=== PATIENT | female | born 1970 | race Hispanic/Latino ===

== ENCOUNTER 2018-10-26 00:11 | Observation (INO) | payer OTHER ==
[~2018-10-26] VITALS: Ht 157.5 cm; Wt 84.4 kg
[2018-10-26] MEDS ORDERED: ASPIRIN 325 MG TABLET ONE (00:51)
[2018-10-26 01:16] LABS: BASOPHILS % (AUTO) 0.2 % (0.0-5.0); EOSINOPHILS % (AUTO) 0.1 % (0.0-8.0); HEMATOCRIT 42.6 % (36-48); LYMPHOCYTES % (AUTO) 32.7 % (21.0-51.0); MEAN CORPUSCULAR HEMOGLOBIN 32.3 pg (27.0-33.0); MEAN CORPUSCULAR HGB CONC 34.4 g/dL (32.0-36.0); MEAN CORPUSCULAR VOLUME 93.9 fL (79-99); MONOCYTES % (AUTO) 8.6 % (3.0-13.0); NEUTROPHILS % (AUTO) 58.4 % (40.0-77.0); NUCLEATED RED BLOOD CELLS 0.1 % (0.0-0.19); PLATELET COUNT (AUTO) 173 K/uL (130-400); RED BLOOD CELL COUNT(AUTO) 4.54 MIL/uL (4.00-5.50); RED CELL DISTRIBUTION WIDTH 13.6 % (11.0-15.5)
[2018-10-26 01:26] LABS: CREATININE 0.7 mg/dL (0.5-1.5); POTASSIUM 3.7 mmol/L (3.5-5.1)
[2018-10-26 01:31] LABS: INR 0.96 (0.85-1.15); PARTIAL THROMBOPLASTIN TIME 26.8 SEC (26.3-35.5); PROTHROMBIN TIME 10.1 SEC (9.6-11.6)
[2018-10-26 01:44] LABS: ALBUMIN 3.7 g/dL (3.5-5.0); BILIRUBIN,TOTAL 0.2 mg/dL (0.2-1.0); TOTAL PROTEIN, SERUM 7.5 g/dL (6.0-8.3)
[2018-10-26 02:22] LABS: AMPHET/METH SCREEN,URINE NEGATIVE (NEGATIVE); BARBITURATE SCREEN, URINE NEGATIVE (NEGATIVE); BENZODIAZEPINES SCREEN,URINE NEGATIVE (NEGATIVE); CANNABINOID SCREEN,URINE NEGATIVE (NEGATIVE); COCAINE SCREEN,URINE NEGATIVE (NEGATIVE); OPIATE SCREEN,URINE NEGATIVE (NEGATIVE); PHENCYCLIDINE SCREEN,URINE NEGATIVE (NEGATIVE)
[2018-10-26] MEDS ORDERED: NITROGLYCERIN 1GM/1 INCH PACKET TD ONE (02:22)
[2018-10-26] MEDS ORDERED: HYDROCODONE/ACETAMINOPHEN 10/325 MG TAB ONE (02:23)
[2018-10-26] MEDS ORDERED: ONDANSETRON HCL 4 MG/2 ML VIAL IV PRN (06:15)
[2018-10-26] MEDS ORDERED: ACETAMINOPHEN 325 MG TAB PO PRN ×3 (06:15→16:00)
[2018-10-26] MEDS ORDERED: HYDRALAZINE HCL 20 MG/ML VIAL IV PRN (06:15)
[2018-10-26] MEDS ORDERED: MORPHINE SULFATE 2 MG/ML 1ML SYG IV PRN (06:15)
[2018-10-26 07:53] LABS: BASOPHILS % (AUTO) 0.3 % (0.0-5.0); EOSINOPHILS % (AUTO) 0.5 % (0.0-8.0); LYMPHOCYTES % (AUTO) 44.2 % (21.0-51.0); MEAN CORPUSCULAR HEMOGLOBIN 32.7 pg (27.0-33.0); MEAN CORPUSCULAR HGB CONC 34.1 g/dL (32.0-36.0); MEAN CORPUSCULAR VOLUME 95.9 fL (79-99); MONOCYTES % (AUTO) 6.8 % (3.0-13.0); NEUTROPHILS % (AUTO) 48.2 % (40.0-77.0); PLATELET COUNT (AUTO) 172 K/uL (130-400); RED BLOOD CELL COUNT(AUTO) 4.48 MIL/uL (4.00-5.50); RED CELL DISTRIBUTION WIDTH 13.5 % (11.0-15.5); WHITE BLOOD COUNT (AUTO) 9.2 K/uL (4.8-10.8)
[2018-10-26 08:15] LABS: CREATININE 0.7 mg/dL (0.5-1.5); POTASSIUM 3.9 mmol/L (3.5-5.1)
[2018-10-26 08:19] LABS: ALBUMIN 3.7 g/dL (3.5-5.0); BILIRUBIN,TOTAL 0.2 mg/dL (0.2-1.0); TOTAL PROTEIN, SERUM 7.5 g/dL (6.0-8.3)
[2018-10-26 08:42] LABS: B-TYPE NATRIURETIC PEPTIDE 13 pg/mL (0-100)
[2018-10-26] MEDS: ENOXAPARIN SODIUM 30 MG/0.3 ML SQ SCH (09:00)
[2018-10-26 10:20] VITALS: BP 132/83
[2018-10-26] MEDS ORDERED: HYOS-27 PO (12:23)
[2018-10-26] MEDS ORDERED: CARV25TA PO (12:23)
[2018-10-26] MEDS ORDERED: CLON0.5T12 PO (12:23)
[2018-10-26] MEDS ORDERED: LIFI1DRO OU (12:23)
[2018-10-26] MEDS ORDERED: ERGO500014 PO (12:23)
[2018-10-26] MEDS ORDERED: AMIT25TA9 PO (12:23)
[2018-10-26] MEDS ORDERED: GABA-531 PO (12:23)
[2018-10-26] MEDS ORDERED: CYCL5TAB PO (12:23)
[2018-10-26] MEDS ORDERED: PROM6.254 PO (12:23)
[2018-10-26 16:00] VITALS: BP 119/71
[2018-10-26] MEDS ORDERED: LORAZEPAM 0.5 MG TABLET PO PRN ×2 (16:00→18:00)
[2018-10-26] MEDS ORDERED: HYDROCODONE/ACETAMINOPHEN 5/325 MG TAB PO PRN (16:00)
[2018-10-26] MEDS ORDERED: MECLIZINE HCL 25 MG TABLET PO PRN (18:00)
[2018-10-26 20:00] VITALS: BP 124/76
[2018-10-26] MEDS ORDERED: CYCLOBENZAPRINE HCL 10 MG TABLET PO SCH (21:00)
[2018-10-26] MEDS ORDERED: CLONAZEPAM 0.5 MG TABLET PO SCH (21:00)
[2018-10-26] MEDS: CARVEDILOL 25 MG TABLET PO SCH (21:04)
[2018-10-27 00:07] VITALS: BP 123/75
[2018-10-27 05:08] VITALS: BP 107/70
[2018-10-27 05:10] LABS: HEMATOCRIT 38.7 % (36-48); MEAN CORPUSCULAR HEMOGLOBIN 32.5 pg (27.0-33.0); MEAN CORPUSCULAR HGB CONC 34.3 g/dL (32.0-36.0); MEAN CORPUSCULAR VOLUME 94.7 fL (79-99); PLATELET COUNT (AUTO) 150 K/uL (130-400); RED BLOOD CELL COUNT(AUTO) 4.09 MIL/uL (4.00-5.50); RED CELL DISTRIBUTION WIDTH 13.6 % (11.0-15.5); WHITE BLOOD COUNT (AUTO) 6.1 K/uL (4.8-10.8)
[2018-10-27 05:16] LABS: CREATININE 0.7 mg/dL (0.5-1.5); POTASSIUM 3.4 mmol/L (3.5-5.1)
[2018-10-27 08:00] VITALS: BP 108/65
[2018-10-27] MEDS ORDERED: AMITRIPTYLINE HCL 25 MG TABLET PO SCH (09:00)
[2018-10-27] MEDS: ENOXAPARIN SODIUM 30 MG/0.3 ML SQ SCH (09:00)
[2018-10-27] MEDS: CARVEDILOL 25 MG TABLET PO SCH (09:00)
[2018-10-27] MEDS ORDERED: GABAPENTIN 300 MG CAPSULE PO SCH (09:00)
[2018-10-27 12:00] VITALS: BP 117/74
[2018-10-27] MEDS ORDERED: POTASSIUM CHLORIDE 20 MEQ ERTAB PO SCH (15:15)
--- NOTE | 2018-10-27 15:51 | NUR ---
INITIAL MET W PT ALONE, AAOX3, LIVES W SPOUSE, CURRENTLY ON SHORT TERM DISABLITY, WALKING W WALKER, HAS W/CHAIR NO PROVIDER, DISABLED DUE TO RA, DCP IS HOME, HERE FOR CHEST PAIN AND ANXIETY Addendum: 10/27/18 at 1554 by QUENTIN YU RN CM Amended: Links added.
== END 2018-10-27 15:50 | disposition home or self-care (01) ==
LOC: EDH 00:11 → EDHIP 06:13 → 4CH 10:15
PROVIDERS: ADMIT Hospitalist; ATTEND Hospitalist
DX: R07.89 Other chest pain (principal); E87.6 Hypokalemia; E11.65 Type 2 diabetes mellitus with hyperglycemia; E66.9 Obesity, unspecified; E78.5 Hyperlipidemia, unspecified; H40.9 Unspecified glaucoma; I10 Essential (primary) hypertension; K21.9 Gastro-esophageal reflux disease without esophagitis; I34.1 Nonrheumatic mitral (valve) prolapse; I63.9 Cerebral infarction, unspecified; J44.9 Chronic obstructive pulmonary disease, unspecified; G30.9 Alzheimer's disease, unspecified; F02.80 Dementia in other diseases classified elsewhere, unspecified severity, without behavioral disturbance, psychotic disturbance, mood disturbance, and anxiety; F41.9 Anxiety disorder, unspecified; Z82.49 Family history of ischemic heart disease and other diseases of the circulatory system; Z79.899 Other long term (current) drug therapy
CPT/HCPCS: 36415 ×2; 71045; 80048; 80053 ×2; 80305; 82550; 83874; 83880; 84484 ×4; 85025 ×2; 85027; 85378; 85610; 85730; 93005 ×2; 93306; 93880; 99284; G0378 ×34

== ENCOUNTER → 2018-12-30 | Outpatient (CLI) | payer OTHER ==
[~2018-12-30] VITALS: Ht 165.1 cm; Wt 87.1 kg
[~2018-12-30] MED LIST: AMIT25TA9 PO; CARV25TA PO; CLON0.5T12 PO; CYCL5TAB PO; ERGO500014 PO; GABA-531 PO; HYOS-27 PO; LIFI1DRO OU; PROM6.254 PO; REGADENOSON 0.4 MG/5 ML PF SYG IVP SCH
== END | disposition home or self-care (01) ==
LOC: SHCH 08:57
PROVIDERS: ATTEND Internal Medicine Cardiovascular Disease
DX: R07.89 Other chest pain (principal)
CPT/HCPCS: 78452; 93017; 96374; A9500 ×2; J2785

== ENCOUNTER → 2020-02-22 | Outpatient (CLI) | payer MEDICARE ==
[~2020-02-22] MED LIST changes: -CLON0.5T12 PO; +CLON0.5T4 PO; -REGADENOSON 0.4 MG/5 ML PF SYG IVP SCH
== END | disposition home or self-care (01) ==
LOC: SHCH 12:38
PROVIDERS: ATTEND Internal Medicine Cardiovascular Disease
DX: I87.2 Venous insufficiency (chronic) (peripheral) (principal); R00.2 Palpitations; R60.9 Edema, unspecified; R07.9 Chest pain, unspecified
CPT/HCPCS: 93306; 93356; 93970

== ENCOUNTER → 2020-02-22 | Outpatient (CLI) | payer OTHER | END | disposition home or self-care (01) | LOC: OIH 12:39 | PROVIDERS: ATTEND Internal Medicine Cardiovascular Disease | DX: Z13.6 Encounter for screening for cardiovascular disorders (principal) | CPT/HCPCS: 75571 ==

== ENCOUNTER → 2020-04-10 | Outpatient (CLI) | payer MEDICARE | END | disposition home or self-care (01) | LOC: OIH 10:19 | PROVIDERS: ATTEND Internal Medicine | DX: M19.042 Primary osteoarthritis, left hand (principal); M19.041 Primary osteoarthritis, right hand; M06.4 Inflammatory polyarthropathy ==

== ENCOUNTER → 2022-05-29 | Outpatient (CLI) | payer MEDICARE ==
[2022-05-29 15:43] LABS: CREATININE 0.7 mg/dL (0.5-1.5); POTASSIUM 3.7 mmol/L (3.5-5.1)
== END | disposition home or self-care (01) ==
LOC: LAB 14:11
PROVIDERS: ATTEND Physician Assistant
DX: I10 Essential (primary) hypertension (principal)
CPT/HCPCS: 36415; 80048

== ENCOUNTER → 2022-06-11 | Outpatient (CLI) | payer MEDICARE | END | disposition home or self-care (01) | LOC: SHCH 09:59 | PROVIDERS: ATTEND Internal Medicine Cardiovascular Disease | DX: R00.1 Bradycardia, unspecified (principal) | CPT/HCPCS: 93306 ==